=== PATIENT | female | born 1960 | race Caucasian/White ===

== ENCOUNTER 2024-01-21 11:17 | Emergency (ER) | payer BC, OTHER ==
[2024-01-21 11:49] VITALS: BP 183/92; PULSE 61; RESP 20; TEMP 98.2; BMI 31.1
== END 2024-01-21 13:09 | disposition home or self-care (01) ==
LOC: FER 11:17
DX: R42 Dizziness and giddiness (principal); F41.9 Anxiety disorder, unspecified
CPT/HCPCS: 70450-TC; 82962; 93005; 99285-25